=== PATIENT | female | born 1950 | race Caucasian/White ===

== ENCOUNTER → 2022-06-05 12:53 | Outpatient (CLI) | payer MEDICARE, SELFPAY ==
--- NOTE | ~2022-06-05 | MR_ITS ---
MRI of the right shoulder Technique: Axial proton-density fat-sat images, coronal proton density fat-sat and T2 fat-sat images, and sagittal T1-weighted and T2 fat-sat images were acquired. Clinical History: Pain Findings: There is mild to moderate AC joint degenerative change. Coracoclavicular, coracoacromial, a nd coracohumeral ligaments are intact. There is mild to moderate tendinosis of the supraspinatus and infraspinatus tendons, without partial or full-thickness tear. Subscapularis tendon is intact with mild to moderate tendinosis. Tendon of th e long head of the biceps is intact. No labral tear identified. Inferior glenohumeral ligament is intact. No effusion or degenerative change of the glenohumeral join t. There is minimal fluid distention of the subacromial/subdeltoid bursa. No muscle atrophy or edema. Impression: Probable minimal subacromial/subdeltoid bursitis. Mild to moderate rotator cuff tendinosis without partial or full-thickness tear. 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 Reviewed, dictated and finalized at [facility]. [employer] Impression: Probable minimal subacromial/subdeltoid bursitis. Mild to moderate rotator cuff tendinosis without partial or full-thickness tear . 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
== END ==
PROVIDERS: PCP Internal Medicine; Visit Provider Physician Assistant
DX: M25.511 Pain in right shoulder (principal); G89.29 Other chronic pain
CPT/HCPCS: 73221